=== PATIENT | female | born 1980 | race Caucasian/White ===

== ENCOUNTER → 2019-04-13 | Outpatient (CLI) | payer OTHER, SELFPAY ==
[2016-11-08 13:00] VITALS: BMI 34.3
[2019-04-17 13:28] LABS: HPV Reflexed? NOT INDICATED
== END | disposition home or self-care (01) ==
LOC: LABSPEC 04-14 10:08
PROVIDERS: Visit Provider Obstetrics & Gynecology
DX: Z12.4 Encounter for screening for malignant neoplasm of cervix (principal)
CPT/HCPCS: 88175; G0145

== ENCOUNTER 2021-01-11 05:32 | Day surgery (SDC) | payer OTHER, SELFPAY ==
[2021-01-11] VITALS (8 sets, daily range): BP systolic 113–129; BP diastolic 70–91; PULSE 80–89; RESP 14–16; TEMP 35.8–36.3; O2SAT 92–97; BMI 35.2
[2021-01-11 06:44] LABS: Prothrombin Time (Protime)PT. 12.8 SECONDS (11.7-14.9)
[2021-01-11 06:45] LABS: Partial Thromboplast Time 26.8 Seconds (24.1-36.2)
[2021-01-11] MEDS: Lactated Ringers 1,000 ML 100 ML IV ×2 (07:00→09:57)
--- NOTE | 2021-01-11 07:00 | RAD_ITS ---
STUDY: X-RAY - LEFT FOOT CLINICAL: Female, 40 years old. FX TECHNIQUE: 11 fluoroscopic view(s) of the foot. 230.3 seconds of fluoroscopy time. COMPARISON: None. FINDINGS: Fluoroscopic images demonstrate placement of fixation hardware/screw spanning the fifth proximal metatarsal fracture. No significant malalignment. RAD/Foot 2 Views IMPRESSION: Surgical guidance for fifth metatarsal fracture fixation Electronically Signed: Elmer Pisano MD ([facility]) at 16:58 EDT , Service support ,
[2021-01-11] MEDS: Lidocaine 2% (20 ml mdv) 20 ML Vial (07:49)
[2021-01-11 08:09] LABS: Hemoglobin A1c 5.5 % (3.8-5.6)
--- NOTE | 2021-01-11 08:47 | PCM.DC ---
Discharge Instructions Diet Discharge Diet: Light diet - advance as tolerated Activity Discharge Activity: May Not Drive, May Not Shower, Use Walker and Use Crutches Weight Bearing Status: No weight bearing (to left foot/leg) Keep extremity elevated above heart level: Left Leg Additional Activity Instructions:: 1. Keep dressing to left leg clean, dry, intact. Do not get dressing wet. If get dressing wet, call office for further instruction. I recommend sponge bathing at this time. 2. Ice around left knee 30 minutes every hour as needed for pain. 3. Elevate left foot above level of heart as often as possible until further instructed. 4. No walking/standing/placing any pressure or weight on left foot. Use crutches/walker/knee scooter for assistance. 5. Begin taking doxycycline (antibiotic) one pill twice a day starting tomorrow, January 12, 2021 twice a day as instructed. 6. Begin aspirin 81 mg one pill twice a day starting tomorrow, January 12, 2021. 7. Begin taking Percocet (pain medication) today, January 11, 2021 as needed and as instructed on bottle. You may supplement with extra strength Tylenol (Acetaminophen). Percocet does contain 325 mg of Tylenol (Acetaminophen) in it. Do not exceed more than 3000 mg of Tylenol (Acetaminophen) in a 24-hour period. 8. Follow-up with Dr. Joseph in 1 week as previously scheduled. Dressing / Incision Call your doctor if your incision/area has: Sudden Increased Bleeding and Increased Pain/ Swelling Call your doctor if you observe: Fever of 101 or Higher, Coldness, Increased Pain, Inability to have a bowel movement, Shortness of breath, Chest pain, Increased palpitations (irregular heartbeat), Calf discomfort and Uncontrolled pain Change Dressing in: do not change dressing Cleanse incision/area with: Do not get Incision Wet and Keep Dressing Clean & Dry Follow Up Care Please Follow Up With: reuben joseph When: in one week as previously scheduled Test Results: Test results from this visit will be discussed in further detail at your follow-up appointment, if applicable. Discharge Plan Admission Attending Provider: Reuben Joseph Primary Care Provider: Rich Gaytan Discharge Orders/Prescriptions Prescriptions: No Action diphenhydramine HCl [Banophen] 25 MG capsule 50 mg PO QHS RF: 0 zolpidem 5 MG tablet 5 mg PO QHS RF: 0 Zyrtec 10 MG capsule 10 mg PO DAILY RF: 0 oxycodone-acetaminophen 1 TABLET tablet 1 - 2 tab PO Q4H PRN PRN (Reason: Pain) Qty: 30 RF: 0 lisinopril 5 mg Tablet 5 mg PO QHS RF: 0 calcium citrate [Citracal] 200 mg (950 mg) Tablet 400 mg PO BID RF: 0
--- NOTE | 2021-01-11 08:51 | OP.PCM_ITS ---
Problems Associated Problem List Diagnoses (1) Nondisplaced fracture of fifth left metatarsal bone: Report of Operation Date of Procedure: 01/11/21 Pre-Operative Diagnosis: left foot fifth metatarsal fracture, Mayers Fracture Post-Operative Diagnosis: left foot fifth metatarsal fracture, Mayers Fracture Surgery/Procedure Performed:: open reduction internal fixation left foot fifth metatarsal fracture Description of Surgical Findings:: consistent with diagnosis. reduction of deformity achieved and held with internal fixation Surgeon: Casper Joseph refrigerator mover: Viridiana Owen Type of Anesthesia: General/Regional (with a lateral ankle block given to the left ankle pre-operatively with 10mL of 2% lidocaine plain) Anesthesiologist: Dayo Green Special Medications: 1 gram of vancomycin given pre-operatively Specimen's removed: none Drains: none Estimated Blood Loss (mL): 5mL Description of Procedure: Hemostasis: Anatomic dissection Estimated blood loss: 5 mL Materials: #1. Arthrex 4.5 x 40 mm partially-threaded screw. 2. Size 3-0 Vicryl. 3. Size 3-0 nylon. Injectables: None Complications: None Condition: Stable Indications: Patient is a 40-year-old female who suffered a left foot injury on in early December of 2020. She was on vacation and fell while at the beach. She rolled her left foot and ankle. Patient had pain in the area of the fifth metatarsal after the injury, and had difficulty bearing weight due to the pain. Patient had a Mayers fracture of this left fifth metatarsal in July of 2020, which was treated non-operatively by another provider. After the second injury, she presented to an urgent care center where x-rays were taken. She was told that she had a fifth metatarsal fracture. She was placed in a pneumatic cam boot and was instructed to remain nonweightbearing with follow-up. Patient initially saw me on 12/27/20 for initial exam. I discussed with her the x-rays do show a redemonstration of a Mayers fracture. I discussed these terms in detail along with the nature of her condition. I discussed conservative therapy with her, including continued nonweightbearing and a below the knee cast for a period of up to 3 months. I discussed surgical intervention with her, including an open reduction with internal fixation of the fifth metatarsal fracture. I discussed the risks and benefits of both conservative and surgical intervention. Risks of surgical intervention include but not limited to delayed or nonhealing wounds, delayed or nonhealing bone, DVT, infection, decreased function of limb, continued pain, damage to surrounding structures, loss of limb, loss of life. Patient displayed verbal understanding to this. Due to the fracture that was present, the reinjury and re-breaking of the bone and the lifestyle that she leads, I recommended surgical intervention. Patient displayed verbal understanding, and was willing to accept the risks of surgical intervention and agreed to proceed with surgical intervention at that time. Consent was then signed by the patient. Surgery was planned for today, January 11, 2021. Operative report: Before the patient was brought to the operating room, the risks, benefits, possible outcomes, possible complications of the procedure were discussed with the patient once again. These include but not limited to delayed or nonhealing wounds, delayed or nonhealing bone, DVT, infection, decreased function of limb, continued pain, damage to surrounding structures, loss of limb, loss of life. Patient displayed verbal understanding to this, was willing to accept the risks and agreed to proceed with surgical intervention. Patient was then brought to the operating room and placed on the operating table in supine position. After a timeout, once general anesthesia was obtained and anesthesia took control the airway and the IV access, 1 gram of vancomycin was given preoperatively. A well-padded pneumatic calf tourniquet was placed the level of the left calf. The plan was not to inflate this unless it was needed. Next , 10 mL of 2% lidocaine plain was distributed in a lateral ankle block fashion to the left ankle. At this time, the left foot, ankle, leg were then scrubbed, prepped, draped in the usual sterile manner. Attention was then directed to the lateral aspect of the left foot. At this time, radiograph evaluation was used to identify the base of the fifth metatarsal fracture, styloid process, tarsometatarsal joint, and midshaft of the fifth metatarsal. These were all marked on the patient. Next, a K wire for the intramedullary screw was placed posterior to the base of the fifth metatarsal aiming at the fifth metatarsal into the medullary canal. Multiple radiographic views were used to make sure that this K wire was well contained within the medullary canal. The K wire was used to help reduce the fifth metatarsal fracture and hold the fifth metatarsal in the correct the reduced position. Once this K wire had adequate placement, a transverse incision parallel to the plantar foot was made at the level of the K wire and skin junction. This incision was approximately 1 cm in length. This incision was deepened utilizing sharp and blunt dissection to the level of the base of the fifth metatarsal. At this time, the fifth metatarsal was drilled and tapped in standard fashion. At this time, the Arthrex 4.5 x 40 mm partially-threaded screw was placed through the base of the fifth metatarsal into the medullary canal in standard fashion. Of note during insertion of the screw was the adequate compression of the fifth metatarsal fracture. Furthermore, no shifting of the fracture occurred during insertion of the screw. Once the screw was fully inserted, all temporary fixation was then removed. Radiograph evaluation was then performed. The fifth metatarsal fracture was noted to be reduced when compared to preoperative assessment. The screw was noted to be well contained within the medullary canal and was not penetrating any of the cortices. Overall, reduction was achieved. The surgical site was then irrigated with copious amounts of normal sterile saline. The subcutaneous tissues were then reapproximated and coapted utilizing size 3-0 Vicryl. The skin was reapproximated coapted utilizing size 3-0 nylon in a simple interrupted and horizontal mattress fashion. Neurovascular status was assessed at the end of the procedure and deemed intact to the left lower extremity. The surgical site was then dressed with Betadine soaked gauze, and a dry sterile dressing setting of 4 x 4 gauze, ABD pads, wrapped with Kerlix. The left foot and ankle were then wrapped with an Vahid bandage. Next, a stockinette was placed over the left lower extremity. Cast padding was wrapped from the metatarsal heads extending proximally to the level just distal to the tibial tuberosity. A posterior splint was fashioned to the left lower extremity and was adhered to the left lower extremity utilizing Vahid bandages. Neurovascular status was assessed at the end of the application and deemed intact to left lower extremity. The patient tolerated the anesthesia and the procedure well and was transported to the PACU with vital signs stable and neurovascular status intact to left lower extremity. After period of postoperative monitoring, patient will be discharged home with written and oral instructions for wound care and follow-up. The certified surgical assistant, the physician district administrative assistant, was utilized at the entire procedure. She helped with patient positioning, holding of limb, holding of retractors. She helped with exposure throughout. She helped with bandage application, and cast application. Without the certified surgical assistant, surgical time would have been increased and surgical outcome could have been less optimal. Complications None Admit VTE Documentation VTE Present on Admission: No (Patient will start ASA 81mg BID stating on 01/12/21 for DVT prophylaxis) VTE Mechan Device Prophylaxis: SCD's
--- NOTE | 2021-01-11 09:10 | RAD_ITS ---
STUDY: X-RAY - LEFT FOOT CLINICAL: Postoperative evaluation of ORIF of left fifth metatarsal fracture. TECHNIQUE: 3 view(s) of the foot. COMPARISON: Intraoperative fluoroscopic images obtained the same day. FINDINGS: Normal talus, calcaneus, and tarsal bones. Normal visualized subtalar, talonavicular, calcaneocuboid, tarsal and tarsometatarsal articulations. There is an orthopedic screw transfixing a proximal fifth metatarsal diaphyseal fracture in anatomical alignment and position. Normal metatarsophalangeal joint of the great toe. Normal tibial and fibular sesamoid bones. Normal interphalangeal joint of the great toe. Normal phalanges of the great toe. Normal second through fifth metatarsophalangeal joints. Normal interphalangeal joints and phalanges of the lesser toes. There is an overlying cast. RAD/Foot min 3 Views IMPRESSION: ORIF of proximal fifth metatarsal diaphyseal fracture. Electronically Signed: Rashel Rajan MD at 10:20 EDT Tel , Service support ,
[2021-01-11] MEDS: oxyCODONE 5 MG Tablet PO (10:27)
== END 2021-01-11 11:07 | disposition home or self-care (01) ==
LOC: SDC 05:35 → AC 05:37
PROVIDERS: PCP Family Medicine; Referring Provider Podiatrist Foot & Ankle Surgery; Visit Provider Podiatrist Foot & Ankle Surgery
PROC: (CPT 28485; principal; 2021-01-11 07:15)
DX: S92.352A Displaced fracture of fifth metatarsal bone, left foot, initial encounter for closed fracture (principal); E66.9 Obesity, unspecified; Z68.34 Body mass index [BMI] 34.0-34.9, adult; F41.9 Anxiety disorder, unspecified; E78.00 Pure hypercholesterolemia, unspecified; I10 Essential (primary) hypertension; Z79.891 Long term (current) use of opiate analgesic; Z79.899 Other long term (current) drug therapy; X50.1XXA Overexertion from prolonged static or awkward postures, initial encounter; Y93.01 Activity, walking, marching and hiking; Y92.832 Beach as the place of occurrence of the external cause; Y99.8 Other external cause status
CPT/HCPCS: 28485; 73620; 73630; 76000; 83036; 85610; 85730; C1713; J7050; J7120; J2405

== ENCOUNTER → 2021-05-29 | Outpatient (CLI) | payer OTHER, SELFPAY ==
[2021-06-01 16:45] LABS: HPV Reflexed? NOT INDICATED
== END | disposition home or self-care (01) ==
LOC: LABSPEC 05-30 09:20
PROVIDERS: PCP Family Medicine; Visit Provider Obstetrics & Gynecology
DX: Z12.4 Encounter for screening for malignant neoplasm of cervix (principal)
CPT/HCPCS: 88175; G0145

== ENCOUNTER → 2025-03-09 | Outpatient (CLI) | payer OTHER, SELFPAY ==
[2025-03-09 12:31] LABS: Hematocrit 38.9 % (37-47); Hemoglobin 12.9 g/dL (12.0-15.0); Immature Granulocytes Count 0.010 X10^3/uL (0.0-0.0); Mean Corp Hgb Conc 33.2 g/dL (32-36); Mean Corpuscular Volume 83.7 fL (81-99); Mean Platelet Vol. 9.8 fl (6.2-12.0); NRBC Flagged by Analyzer 0 % (0-5); Platelet Count 419 K/mm3 (150-450); RBC Distribution Width CV 13.5 % (11.6-14.6); RBC Distribution Width SD 41.7 fl (35.1-43.9); Red Blood Count 4.65 M/mm3 (4.2-5.4); White Blood Count 6.4 K/mm3 (4.4-11.0)
[2025-03-13 12:08] LABS: Aspirgillus flavus Negative (Neg:<1:1); Aspirgillus fumigatus Negative (Neg:<1:1); Aspirgillus niger Negative (Neg:<1:1); Cytoplasmic Ab (C-ANCA) <1:20 titer (Neg:<1:20); Perinuclear Ab (P-ANCA) <1:20 titer (Neg:<1:20)
[2025-03-14 10:08] LABS: Ash, White <0.10 kU/L (Class 0); Black Walnut <0.10 kU/L (Class 0); Cat Hair / Dander,Stand <0.10 kU/L (Class 0); Cedar, Mountain <0.10 kU/L (Class 0); Cockroach, American <0.10 kU/L (Class 0); Dog Epithelia <0.10 kU/L (Class 0); Elm, American White 0.26 kU/L (Class 0/I); Mulberry, White <0.10 kU/L (Class 0); Oak, White <0.10 kU/L (Class 0); Pigweed, Rough <0.10 kU/L (Class 0); Ragweed, Short/Common 1.54 kU/L (Class III); Sycamore, American <0.10 kU/L (Class 0)
== END | disposition home or self-care (01) ==
PROVIDERS: PCP Family Medicine; Referring Provider Internal Medicine Critical Care Medicine; Visit Provider Internal Medicine Critical Care Medicine
DX: J45.909 Unspecified asthma, uncomplicated (principal)
CPT/HCPCS: 36415; 82785; 85025; 86003; 86037; 86606

== ENCOUNTER → 2025-04-27 | Outpatient (CLI) | payer OTHER, SELFPAY ==
[2025-04-27 13:47] LABS: Hematocrit 40.3 % (37-47); Hemoglobin 12.8 g/dL (12.0-15.0); Immature Granulocytes Count 0.050 X10^3/uL (0.0-0.0); Mean Corp Hgb Conc 31.8 g/dL (32-36); Mean Corpuscular Volume 83.8 fL (81-99); Mean Platelet Vol. 9.7 fl (6.2-12.0); NRBC Flagged by Analyzer 0 % (0-5); Platelet Count 357 K/mm3 (150-450); RBC Distribution Width CV 13.0 % (11.6-14.6); RBC Distribution Width SD 39.6 fl (35.1-43.9); Red Blood Count 4.81 M/mm3 (4.2-5.4); White Blood Count 11.3 K/mm3 (4.4-11.0)
== END | disposition home or self-care (01) ==
PROVIDERS: PCP Family Medicine; Referring Provider Nurse Practitioner Acute Care; Visit Provider Nurse Practitioner Acute Care
DX: R06.2 Wheezing (principal)
CPT/HCPCS: 36415; 85025

== ENCOUNTER → 2025-06-08 | Outpatient (CLI) | payer OTHER, SELFPAY ==
[2025-06-08 11:12] LABS: Hematocrit 39.7 % (37-47); Hemoglobin 12.9 g/dL (12.0-15.0); Immature Reticulocyte Fraction 9.70 % (3.00-15.90); Mean Corp Hgb Conc 32.5 g/dL (32-36); Mean Corpuscular Volume 83.6 fL (81-99); Mean Platelet Vol. 9.6 fl (6.2-12.0); Platelet Count 350 K/mm3 (150-450); RBC Distribution Width CV 13.5 % (11.6-14.6); RBC Distribution Width SD 41.3 fl (35.1-43.9); Red Blood Count 4.75 M/mm3 (4.2-5.4); Reticulocyte Count 1.41 % (0.5-1.5); White Blood Count 9.3 K/mm3 (4.4-11.0)
[2025-06-08 11:28] LABS: Iron 52 ug/dL (50-170); Iron Binding Capacity,Total 423 ug/dL (250-450); Iron Binding Capacity,Unsat 371 ug/dL (228-428)
== END | disposition home or self-care (01) ==
LOC: LAB 11:02
PROVIDERS: PCP Family Medicine; Referring Provider Nurse Practitioner Primary Care; Visit Provider Nurse Practitioner Primary Care
DX: K90.0 Celiac disease (principal); D50.9 Iron deficiency anemia, unspecified
CPT/HCPCS: 36415; 83540; 83550; 85027; 85045